=== PATIENT | female | born 1990 | race African-American/Black ===

== ENCOUNTER 2016-12-27 01:26 | Emergency (ER) | payer SELFPAY ==
[~2016-12-27 01:26] MED LIST: CIPRO PO; FLONASE16 GM
[2016-12-27] MEDS ORDERED: NO MEDICATIONS (01:41)
[2016-12-27 02:03] LABS: URINE SOURCE CLEAN CATCH
[2016-12-27 02:05] LABS: URINE APPEARANCE CLOUDY; URINE BILIRUBIN NEG (NEG); URINE BLOOD 1+ (NEG); URINE COLOR YELLOW; URINE GLUCOSE NEG (NORM); URINE KETONE NEG (NEG); URINE LEUKOCYTE ESTERASE 1+ (NEG); URINE NITRATE POS (NEG); URINE PROTEIN TRACE (NEG); URINE SPECIFIC GRAVITY >=1.030 (1.003-1.035)
[2016-12-27 02:08] LABS: MICRO INDICATED? YES
[2016-12-27 02:21] LABS: CULTURE INDICATED? YES; URINE AMORPHOUS SEDIMENT AMORP URATES; URINE BACTERIA 4+ (NEG); URINE MUCUS PRESENT; URINE SQUAMOUS EPITHELIAL CELL MODERATE /[HPF]; URINE WBC 50-100 /[HPF] (0-5)
== END 2016-12-27 02:47 | disposition home or self-care (01) ==
LOC: SED 01:26
PROVIDERS: Emergency Medicine
DX: N39.0 Urinary tract infection, site not specified (principal); R31.9 Hematuria, unspecified; F17.210 Nicotine dependence, cigarettes, uncomplicated
CPT/HCPCS: 81003; 84703; 87086; 87088; 87186; 99283

== ENCOUNTER 2017-02-07 17:35 | Emergency (ER) | payer OTHER ==
[~2017-02-07 17:35] MED LIST changes: +NO MEDICATIONS
[2017-02-07 18:50] LABS: URINE SOURCE CLEAN CATCH
[2017-02-07 18:58] LABS: URINE APPEARANCE TURBID; URINE BILIRUBIN NEG (NEG); URINE BLOOD 1+ (NEG); URINE COLOR YELLOW; URINE GLUCOSE NEG (NEG); URINE KETONE NEG (NEG); URINE LEUKOCYTE ESTERASE 3+ (NEG); URINE NITRATE POS (NEG); URINE PH 7.5 (5-8); URINE PROTEIN 2+ (NEG); URINE SPECIFIC GRAVITY 1.021 (1.003-1.035)
[2017-02-07 19:00] LABS: CULTURE INDICATED? YES; URINE BACTERIA AUWI 4+ (NEGATIVE); URINE SQUAMOUS EPITHELIAL CELL OCC /[HPF]; UWBCS1 AUWI INNUM (0-5)
[2017-02-14 11:42] LABS: CHLAMYDIA TRACH Not Detected
[2017-02-14 11:43] LABS: N GONOR Not Detected
== END 2017-02-07 20:50 | disposition home or self-care (01) ==
LOC: CFTX 17:35 → CED 17:35 → CFTX 19:34
PROVIDERS: Nurse Practitioner
DX: N39.0 Urinary tract infection, site not specified (principal); F32.9 Major depressive disorder, single episode, unspecified
CPT/HCPCS: 81003; 84703; 87086; 87088; 87186; 87491; 87591; 87808; 87905; 99283

== ENCOUNTER 2017-03-26 19:28 | Emergency (ER) | payer OTHER ==
[~2017-03-26] VITALS: Ht 157.5 cm; Wt 93.9 kg
[2017-03-26 20:20] LABS: URINE SOURCE CLEAN CATCH
[2017-03-26 20:26] LABS: URINE APPEARANCE CLEAR; URINE BILIRUBIN NEG (NEG); URINE BLOOD TRACE-LYSED (NEG); URINE COLOR YELLOW; URINE GLUCOSE NEG (NORM); URINE KETONE NEG (NEG); URINE LEUKOCYTE ESTERASE 2+ (NEG); URINE NITRATE NEG (NEG); URINE PROTEIN NEG (NEG); URINE SPECIFIC GRAVITY >=1.030 (1.003-1.035)
[2017-03-26 20:28] LABS: MICRO INDICATED? YES
[2017-03-26 20:34] LABS: CULTURE INDICATED? YES; URINE BACTERIA 1+ (NEG); URINE SQUAMOUS EPITHELIAL CELL MODERATE /[HPF]; URINE WBC 50-100 /[HPF] (0-5)
[2017-03-26 20:35] LABS: URINE MUCUS PRESENT; URINE TRICHOMONAS PRESENT
[2017-03-31 01:43] LABS: CHLAMYDIA TRACH Not Detected (Not Detected); N GONOR Not Detected (Not Detected)
== END 2017-03-26 21:27 | disposition home or self-care (01) ==
LOC: SED 19:28
PROVIDERS: Nurse Practitioner Family
DX: A59.9 Trichomoniasis, unspecified (principal); Z20.2 Contact with and (suspected) exposure to infections with a predominantly sexual mode of transmission; N89.8 Other specified noninflammatory disorders of vagina; F17.200 Nicotine dependence, unspecified, uncomplicated
CPT/HCPCS: 81003; 84703; 87086; 87210; 87491; 87591; 87808; 87905; 99283; J0696